=== PATIENT | male | born 1995 | race Caucasian/White ===

== ENCOUNTER 2019-06-09 20:06 | Emergency (ER) | payer SELFPAY ==
[~2019-06-09] VITALS: Ht 182.9 cm; Wt 93.1 kg
[2019-06-09 20:07] VITALS: BP 126/75
[2019-06-09 20:59] LABS: INFLUENZA A AMPLIFICATION NEGATIVE (NEGATIVE); INFLUENZA B AMPLIFICATION NEGATIVE (NEGATIVE)
== END 2019-06-09 22:47 | disposition left against medical advice (07) ==
LOC: M ED 20:06
DX: Z53.21 Procedure and treatment not carried out due to patient leaving prior to being seen by health care provider (principal)

== ENCOUNTER 2020-10-30 07:58 | Emergency (ER) | payer OTHER, SELFPAY ==
[~2020-10-30] VITALS: Ht 185.4 cm; Wt 88.6 kg
--- NOTE | 2020-10-30 09:32 | REP ---
INDICATION: injury. COMPARISON: None. TECHNIQUE: Four images of the right knee were obtained. FINDINGS: There is no evidence of fracture or dislocation. There are no joint space abnormalities. There is no knee joint effusion. There is an old ununited avulsion fracture of the tibial tuberosity. IMPRESSION: 1. Normal right knee. 2. 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 <Electronically signed by Calvin Goodwin > 10/30/20 [id number]
[2020-10-30 09:48] VITALS: BP 131/82
== END 2020-10-30 09:56 | disposition home or self-care (01) ==
LOC: EDBD 07:58 → M ED 07:58
DX: M23.91 Unspecified internal derangement of right knee (principal); Y92.9 Unspecified place or not applicable; Y93.B3 Activity, free weights; Y99.9 Unspecified external cause status